=== PATIENT | male | born 1990 | race Caucasian/White ===

== ENCOUNTER 2021-10-17 11:14 | Emergency (ER) | payer SELFPAY | END 2021-10-17 14:00 | disposition home or self-care (01) | LOC: ER1 11:14 → EDBD 11:14 → ER1 12:34 | DX: S46.911A Strain of unspecified muscle, fascia and tendon at shoulder and upper arm level, right arm, initial encounter (principal); S00.01XA Abrasion of scalp, initial encounter; Z87.891 Personal history of nicotine dependence; V49.9XXA Car occupant (driver) (passenger) injured in unspecified traffic accident, initial encounter; Y92.410 Unspecified street and highway as the place of occurrence of the external cause | CPT/HCPCS: 71045; 73030; 96374; 99283; J1885 ==